=== PATIENT | male | born 1995 | race Caucasian/White ===

== ENCOUNTER 2018-02-15 18:23 | Emergency (ER) | payer SELFPAY ==
[2018-02-15] MEDS ORDERED: Lidocaine 1% (PF) 30 ML VIAL ONE (18:48)
[2018-02-15] MEDS ORDERED: Bacitracin Zinc 1 Packet ONE (19:14)
== END 2018-02-15 19:45 | disposition home or self-care (01) ==
LOC: ERS 18:23
DX: S61.210A Laceration without foreign body of right index finger without damage to nail, initial encounter (principal); F41.9 Anxiety disorder, unspecified; F17.200 Nicotine dependence, unspecified, uncomplicated; W26.0XXA Contact with knife, initial encounter
CPT/HCPCS: 12001; J2001

== ENCOUNTER 2021-01-13 07:46 | Day surgery (SDC) | payer OTHER ==
[2021-01-12 09:10] VITALS: BMI 28.5
[2021-01-13] MEDS ORDERED: Midazolam HCl 2 mg/2 ml Vial ONE (07:55)
[2021-01-13] MEDS ORDERED: Fentanyl 100 MCG/2 ML VIAL ONE ×2 (07:55→11:41)
[2021-01-13] MEDS ORDERED: HYDROmorphone 0.5 MG/0.5 ML SYRINGE ONE (07:55)
[2021-01-13] MEDS ORDERED: Acetaminophen 500 MG TAB ONE (07:58)
[2021-01-13] MEDS ORDERED: Ketorolac Tromethamine 30 MG/ML VIAL ONE (07:58)
[2021-01-13] MEDS ORDERED: Bupivacaine 0.25% HCL 30 ML VIAL ONE (07:58)
[2021-01-13] MEDS ORDERED: EPINEPHrine 1 MG/ML AMP ONE (07:58)
[2021-01-13] MEDS ORDERED: Dexamethasone 20 MG/5 ML VIAL ONE (08:37)
[2021-01-13] MEDS ORDERED: Lidocaine 1% PF 5 ML VIAL ONE (08:37)
[2021-01-13] MEDS ORDERED: Ondansetron PF 4 MG/2 ML Vial ONE (08:37)
[2021-01-13] MEDS ORDERED: PROPOFOL 200 MG/20 ML VIAL ONE (08:37)
[2021-01-13] MEDS ORDERED: HYDROcodone/Acetaminophen 5/325 mg Tablet ONE (13:48)
== END 2021-01-13 14:02 ==
LOC: SDC 07:46
PROVIDERS: ATTEND Surgery
PROC: 0YQ60ZZ Repair Left Inguinal Region, Open Approach (ICD-10-PCS; principal; 2021-01-13)
DX: K40.90 Unilateral inguinal hernia, without obstruction or gangrene, not specified as recurrent (principal); D17.6 Benign lipomatous neoplasm of spermatic cord
CPT/HCPCS: 88302; A4306; C1781; J0171; J0690; J1100; J1170; J1885; J2250; J2405; J2704; J3010; S0020

== ENCOUNTER 2021-02-01 14:45 | Observation (INO) | payer OTHER, SELFPAY ==
[2021-02-01] MEDS ORDERED: Iopamidol-370 76% 500 ML 1 ML ONE (15:01)
[2021-02-01] MEDS ORDERED: Ondansetron PF 4 MG/2 ML Vial ONE (15:46)
[2021-02-01] MEDS ORDERED: Morphine 4 MG/ML VIAL ONE ×2 (15:46→17:14)
[2021-02-01] MEDS ORDERED: Piperacillin/Tazobactam 4.5 GM VIAL ONE (15:46)
[2021-02-01 16:28] LABS: #Basophils 0.1 thou/uL (0.0-0.2); #Eosinphils 0.1 thou/uL (0.0-0.7); #Lymphocytes 1.7 thou/uL (1.20-3.40); #Monocytes 0.9 thou/uL (0.11-0.59); #Neutrophils 4.5 thou/uL (1.40-6.50); %Basophils 0.7 % (0.0-1.0); %Eosinophils 1.6 % (0.0-10.0); %Lymphocytes 23.5 % (21.0-51.0); %Neutrophils 62.2 % (42.0-75.0); Hemoglobin 15.1 g/dL (14.0-18.0); Mean Corpuscular HGB CONC 33.3 g/dL (32.0-36.0); Mean Corpuscular Hemoglobin 30.8 pg (27.0-31.0); Mean Corpuscular Volume 92.3 fL (78.0-98.0); Platelet Count 178 thou/uL (130-400); RBC Distribution Width 11.3 % (11.5-14.5); White Blood Cell (WBC) Count 7.3 thou/uL (4.8-10.8)
[2021-02-01 16:46] LABS: ALT (SGPT) 40 U/L (8-55); AST (SGOT) 20 U/L (5-34); Albumin 4.5 g/dL (3.5-5.0); Alkaline Phosphatase 91 U/L (40-110); Anion Gap 12 mmol/L (10-20); BUN (Urea Nitrogen) 13 mg/dL (8.9-20.6); Bilirubin, Total 0.3 mg/dL (0.2-1.2); Calc. Creatinine Clearance 0 mL/min (70-130); Calcium 10.2 mg/dL (7.8-10.44); Carbon Dioxide 27 mmol/L (22-29); Chloride 103 mmol/L (98-107); Globulin 3.2 g/dL (2.4-3.5); Glucose 93 mg/dL (70-105); Potassium 4.1 mmol/L (3.5-5.1); Protein, Total 7.7 g/dL (6.0-8.3); Sodium 138 mmol/L (136-145)
[2021-02-01] MEDS ORDERED: VANCOMYCIN 2 GRAM/400 ML BAG 2 GM in Premix Bag 1 BAG IVPB SCH (17:00)
[2021-02-01] MEDS ORDERED: Acetaminophen 325 MG TAB PO PRN (18:00)
[2021-02-01] MEDS ORDERED: Ondansetron ODT 4 MG TAB PO PRN (18:00)
[2021-02-01] MEDS ORDERED: Ondansetron PF 4 MG/2 ML Vial IVP PRN (18:00)
[2021-02-01] MEDS ORDERED: Ketorolac Tromethamine 30 MG/ML VIAL ONE (18:39)
[2021-02-01] MEDS ORDERED: Acetaminophen 500 MG TAB PO PRN (18:46)
[2021-02-01] MEDS ORDERED: Ketorolac Tromethamine 30 MG/ML VIAL IVP SCH (19:00)
[2021-02-01] MEDS ORDERED: traMADol HCl 50 MG TAB PO SCH (20:00)
[2021-02-01 20:13] VITALS: BMI 28.5
[2021-02-01 21:12] LABS: SARS-CoV-2 PCR by NAA Not Detected (NotDetected)
[2021-02-01] MEDS: Morphine 4 MG/ML VIAL SLOW IVP PRN (21:53)
[2021-02-01] MEDS: Piperacillin/Tazobactam 3.375 GM in Sodium Chloride 0.9% 100 ML IVPB SCH (23:17)
[2021-02-01] MEDS ORDERED: Ketorolac Tromethamine 30 MG/ML VIAL IVP PRN (23:59)
[2021-02-02] MEDS: Morphine 4 MG/ML VIAL SLOW IVP PRN ×2 (02:56→06:10)
[2021-02-02] MEDS: Piperacillin/Tazobactam 3.375 GM in Sodium Chloride 0.9% 100 ML IVPB SCH (05:29)
[2021-02-02] MEDS ORDERED: VANCOMYCIN 1.75 GM/350 ML BAG 1.75 GM in Premix Bag 1 BAG IVPB SCH (06:00)
[2021-02-02 06:01] LABS: #Eosinphils 0.2 thou/uL (0.0-0.7); #Lymphocytes 2.1 thou/uL (1.20-3.40); #Monocytes 0.6 thou/uL (0.11-0.59); #Neutrophils 2.2 thou/uL (1.40-6.50); %Basophils 0.6 % (0.0-1.0); %Eosinophils 3.9 % (0.0-10.0); %Lymphocytes 40.7 % (21.0-51.0); %Monocytes 12.2 % (0.0-10.0); %Neutrophils 42.6 % (42.0-75.0); Hemoglobin 14.3 g/dL (14.0-18.0); Mean Corpuscular HGB CONC 33.3 g/dL (32.0-36.0); Mean Platelet Volume 7.9 fL (7.4-10.4); Platelet Count 155 thou/uL (130-400); RBC Distribution Width 11.3 % (11.5-14.5); Red Blood Cell (RBC) Count 4.62 mill/uL (4.70-6.10); White Blood Cell (WBC) Count 5.1 thou/uL (4.8-10.8)
[2021-02-02 06:26] LABS: ALT (SGPT) 31 U/L (8-55); AST (SGOT) 15 U/L (5-34); Albumin 3.8 g/dL (3.5-5.0); Alkaline Phosphatase 78 U/L (40-110); Anion Gap 10 mmol/L (10-20); BUN (Urea Nitrogen) 13 mg/dL (8.9-20.6); Bilirubin, Total 0.2 mg/dL (0.2-1.2); Calc. Creatinine Clearance 170 mL/min (70-130); Calcium 9.4 mg/dL (7.8-10.44); Carbon Dioxide 24 mmol/L (22-29); Chloride 108 mmol/L (98-107); Globulin 2.5 g/dL (2.4-3.5); Glucose 102 mg/dL (70-105); Potassium 4.4 mmol/L (3.5-5.1); Protein, Total 6.3 g/dL (6.0-8.3); Sodium 138 mmol/L (136-145)
[2021-02-02] MEDS ORDERED: Ibuprofen 600 MG TAB PO PRN (07:35)
[2021-02-02] MEDS: Acetaminophen 500 MG TAB PO PRN ×2 (08:01→14:52)
[2021-02-02 08:34] VITALS: TEMP 97.6
[2021-02-02] MEDS ORDERED: Enoxaparin Sodium 40 MG/0.4 ML SYRINGE SC SCH (09:00)
[2021-02-02] MEDS ORDERED: Cephalexin 250 MG CAP PO SCH (12:00)
[2021-02-02 12:23] VITALS: BP 114/72
[2021-02-02] MEDS ORDERED: Acetaminophen 500 MG TAB PO SCH (15:00)
== END 2021-02-02 14:58 ==
LOC: ERS 14:45 → EEVIPCON 14:45 → T4-B 17:41
PROVIDERS: ADMIT Emergency Medicine; ATTEND Emergency Medicine
DX: L03.311 Cellulitis of abdominal wall (principal); F15.11 Other stimulant abuse, in remission; Z87.891 Personal history of nicotine dependence; Z20.822 Contact with and (suspected) exposure to COVID-19
CPT/HCPCS: 36415; 74177; 80053; 85025; 87040; 87635; 96365; 96366; 96367; 96375; 96376; G0378; J1885; J2270; J2405; J2543; J3370; J3490; Q9967; U0003; U0005

== ENCOUNTER 2021-10-20 17:47 | Emergency (ER) | payer SELFPAY ==
[2021-10-20] MEDS ORDERED: Acetaminophen 500 MG TAB ONE (18:30)
[2021-10-20 19:09] LABS: Bilirubin Negative (Negative); Blood, Urine Negative (Negative); Glucose, Urine (Dipstick) Negative (Negative); Ketone, Urine Negative (Negative); Leukocyte Negative (Negative); Nitrite Negative (Negative); Protein, Urine (Dipstick) Negative (Neg-Trace)
[2021-10-20 19:12] LABS: Clarity Clear (Clear)
[2021-10-20 19:16] LABS: Bacteria/HPF Rare-Few HPF (None Seen); RBC/HPF 0-3 HPF (0-3); Squamous Epithelial 0-3 HPF (0-3); WBC/HPF 0-3 HPF (0-3)
[2021-10-20] MEDS ORDERED: cefTRIAXone\\ROCEPHIN 500 MG VIAL ONE (19:30)
[2021-10-20] MEDS ORDERED: Xylocaine 1% w/ Epi 1:100K 10 ML VIAL ONE (19:30)
[2021-10-20] MEDS ORDERED: Ibuprofen 200 MG TAB ONE (19:31)
[2021-10-20] MEDS ORDERED: Ibuprofen 800 MG TAB ONE (19:31)
[2021-10-20] MEDS ORDERED: Lidocaine 1% (PF) 30 ML VIAL ONE (19:34)
[2021-10-20 19:52] LABS: #Lymphocytes 1.1 thou/uL (1.20-3.40); #Monocytes 0.9 thou/uL (0.11-0.59); #Neutrophils 7.9 thou/uL (1.40-6.50); %Basophils 0.3 % (0.0-1.0); %Eosinophils 0.4 % (0.0-10.0); %Lymphocytes 11.3 % (21.0-51.0); %Monocytes 9.2 % (0.0-10.0); %Neutrophils 78.8 % (42.0-75.0); Hemoglobin 13.7 g/dL (14.0-18.0); Mean Corpuscular HGB CONC 33.7 g/dL (32.0-36.0); Mean Corpuscular Hemoglobin 31.2 pg (27.0-31.0); Mean Corpuscular Volume 92.8 fL (78.0-98.0); Mean Platelet Volume 7.5 fL (7.4-10.4); Platelet Count 155 thou/uL (130-400); RBC Distribution Width 11.3 % (11.5-14.5); Red Blood Cell (RBC) Count 4.38 mill/uL (4.70-6.10)
[2021-10-20 20:11] LABS: ALT (SGPT) 35 U/L (8-55); AST (SGOT) 23 U/L (5-34); Albumin 3.6 g/dL (3.5-5.0); Alkaline Phosphatase 84 U/L (40-110); Anion Gap 12 mmol/L (10-20); BUN (Urea Nitrogen) 8 mg/dL (8.9-20.6); Bilirubin, Total 0.2 mg/dL (0.2-1.2); Calc. Creatinine Clearance 0 mL/min (70-130); Carbon Dioxide 25 mmol/L (22-29); Chloride 101 mmol/L (98-107); Globulin 2.8 g/dL (2.4-3.5); Glucose 133 mg/dL (70-105); Potassium 3.9 mmol/L (3.5-5.1); Protein, Total 6.4 g/dL (6.0-8.3); Sodium 134 mmol/L (136-145)
[2021-10-23 05:01] LABS: Chlam.trachomatis by PCR,Urine Not Detected (NotDetected)
== END 2021-10-20 20:25 | disposition home or self-care (01) ==
LOC: ERS 17:47
DX: J02.9 Acute pharyngitis, unspecified (principal); F17.210 Nicotine dependence, cigarettes, uncomplicated
CPT/HCPCS: 36415; 80053; 81003; 85025; 87491; 87591; 96372; 99283; J0696; J2001

== ENCOUNTER 2022-05-31 14:59 | Emergency (ER) | payer OTHER, SELFPAY ==
[2022-05-31 18:53] LABS: HBSAg Index 0.26 S/CO (0-0.99); HIV (1/2) Antibody/Antigen Non-Reactive (NonReactive); HIV 1/2 INDEX 0.12 S/CO (<1.00); Hep B Surf Ag Non-Reactive S/CO (NonReactive); Hep C IgG Ab Non-Reactive (NonReactive); Hep C Index 0.07 S/CO (0-0.79)
== END 2022-05-31 16:51 ==
LOC: ERS 14:59
DX: Z02.89 Encounter for other administrative examinations (principal); F17.200 Nicotine dependence, unspecified, uncomplicated
CPT/HCPCS: 36415; 74019; 87340